=== PATIENT | male | born 1960 | race Native Hawaiian/Other Pacific Islander ===

== ENCOUNTER → 2019-06-29 15:10 | Outpatient (CLI) | payer OTHER, SELFPAY | PROVIDERS: Visit Provider Urology | DX: C61 Malignant neoplasm of prostate (principal); M85.852 Other specified disorders of bone density and structure, left thigh; E11.9 Type 2 diabetes mellitus without complications; Z87.891 Personal history of nicotine dependence | CPT/HCPCS: 77080 ==

== ENCOUNTER → 2020-03-01 08:26 | Outpatient (CLI) | payer OTHER, SELFPAY ==
[2020-03-01 09:21] LABS: Hemoglobin A1C% w Est Avg Glu 11.2 % (4.0-6.0)
[2020-03-01 09:26] LABS: BUN Creatinine Ratio 26.1 (6-22); Blood Urea Nitrogen 18 mg/dL (9-20); Calcium 9.8 mg/dL (8.4-10.2); Carbon Dioxide 26 mmol/L (22-32); Chloride 103 mmol/L (98-107); Cholesterol 159 mg/dL (140-199); Estimated Glomerular Filt Rate > 60.0 mL/min (>60); Glucose 255 mg/dL (80-110); HDL Cholesterol 37 mg/dL (40-60); HEMOLYSIS < 15 (0-50); LDL Cholesterol Calculated 77 mg/dL (<100); Potassium 4.1 mmol/L (3.4-5.1); Sodium 139 mmol/L (137-145); Triglycerides 224 mg/dL (35-150)
[2020-03-01 13:47] LABS: Microalbumin Urine Random 35.9 mg/dL (0-1.6)
[2020-03-01 13:48] LABS: Creatinine Urine Random 128 mg/dL; Microalbumi Creatinin Ratio Ur 280.5 ug/mg CR (<30)
== END ==
PROVIDERS: PCP Internal Medicine; Referring Provider Internal Medicine; Visit Provider Internal Medicine
DX: E11.9 Type 2 diabetes mellitus without complications (principal); E78.5 Hyperlipidemia, unspecified
CPT/HCPCS: 36415; 80048; 80061; 82043; 82570; 83036

== ENCOUNTER → 2022-03-30 10:02 | Outpatient (CLI) | payer OTHER, SELFPAY ==
[2022-03-30 12:00] LABS: COVID19 -Nasal RAPID Negative (Negative)
== END ==
PROVIDERS: PCP Internal Medicine; Visit Provider Surgery
DX: Z01.812 Encounter for preprocedural laboratory examination (principal); Z20.822 Contact with and (suspected) exposure to COVID-19
CPT/HCPCS: 87635; C9803

== ENCOUNTER 2022-03-31 10:23 | Day surgery (SDC) | payer OTHER, SELFPAY ==
[2022-03-31] VITALS (7 sets, daily range): BP systolic 128–155; BP diastolic 80–93; PULSE 60–73; RESP 14–18; TEMP 36.4–36.5; O2SAT 98–100; BMI 30.9
--- NOTE | 2022-03-31 | PATH_ITS ---
[facility] Accession Number: [id number] . 01 Material submitted: . PART A: cecum - CECAL COLON POLYP PART B: colon - ASCENDING COLON POLYP X2 . 01 Diagnosis: A. Cecal Polyp, Biopsy: Colonic mucosa with prominent benign lymphoid aggregate. Negative for serrated lesion, dysplasia, or malignancy. . B. Ascending Colon Polyps, Biopsies: Tubular adenoma x2. MRV 04/02/2022 1135 Local . 01 Electronically signed: . Kristofer Zamora MD, PhD, Pathologist NPI- [id number] . 01 Gross description: . Part A: CECAL COLON POLYP: Received in formalin is 1 fragment(s) of subramanian, soft tissue measuring 0.9 x 0.3 x 0.1 cm submitted entirely in 1 cassette(s) Part B: ASCENDING COLON POLYP X2: Received in formalin are 2 fragment(s) of subramanian, soft tissue measuring 0.5 x 0.3 x 0.2 cm to 0.5 x 0.2 x 0.2 cm submitted entirely in 1 cassette(s) /CPE 04/01/2022 0918 Local . 01 Pathologist provided ICD-10: D12.2 . 01 CPT . 539114, [id number] Specimen Comment: A courtesy copy of this report has been sent to [phone] Performed at: [facility] [address] [place] [address], [place], [place] [id number] MD Charles Garcia MD Phone: [phone]
[2022-03-31] MEDS: LACTATED RINGERS 1,000 ML 84 ML IV (11:07)
--- NOTE | 2022-03-31 11:19 | P.HP_ITS ---
History of Present Illness History of Present Illness Chief complaint: [facility] [place] History Family & Social History Social History: household members none Tobacco & Substance use: Smoking Status Never smoker alcohol intake former Substance Use Type does not use Meds Home Medications and Allergies Home Medications Medication Instructions Recorded Confirmed Type alfuzosin 10 mg tablet,extended 10 tab PO DAILY 03/31/22 03/31/22 History release 24 hr aspirin 81 mg tablet,delayed 81 mg PO DAILY 03/31/22 03/31/22 History release atorvastatin 20 mg tablet 20 tab PO DAILY 03/31/22 03/31/22 History cyclobenzaprine 10 mg tablet 10 tab PO 1-2XD PRN Moderate Pain 03/31/22 03/31/22 History (Scale Score 5-6) dulaglutide 3 mg/0.5 mL 3 ea SUBCUT DIRECTED 03/31/22 03/31/22 History subcutaneous pen injector (Trulicity) insulin glargine 100 unit/mL (3 20 ea SUBCUT BID 03/31/22 03/31/22 History mL) subcutaneous pen (Lantus Solostar U-100 Insulin) losartan 50 mg tablet 50 mg PO DAILY 03/31/22 03/31/22 History Allergies Allergy/AdvReac Type Severity Reaction Status Date / Time No Known Drug Allergies Allergy Verified 03/31/22 11:00 Review of Systems Review of Systems Narrative: Negative Exam Vital Signs (past 8 hours): - 03/31/22 10:51 Temperature 97.7 F Pulse Rate 73 Respiratory Rate 18 Blood Pressure 155/93 H Pulse Oximetry 100 Oxygen Delivery Method Room Air Oxygen Delivery Method Room Air Narrative Exam Narrative: Awake alert and oriented x3, pupils equal round reactive to light, oropharynx clear, heart regular rate and rhythm, lungs clear to auscultation bilaterally, abdomen nontender and nondistended, extremities without edema, no gross neurologic deficits noted Assessment & Plan Assessment & Plan narrative: Colon cancer screening for colonoscopy today Time Spent With Patient Critical Care time: I spent a total of [] minutes of critical care time on this patient's care today; this time is exclusive of procedural time.
--- NOTE | 2022-03-31 11:54 | PM.OP.COLON ---
Operative Date/Time/Diagnoses Date of procedure: 03/31/22 Procedure & Clinicians Study performed: Colonoscopy with snare polypectomy Indications: Colon cancer screening. Last colonoscopy was about 10 years ago. Procedure Notes Procedure in detail: Prior to the procedure, history and physical was performed, and patient medications and allergies were reviewed. Preprocedure nursing history and assessment was reviewed. Patient identification and proposed procedure were verified by the physician and nurse in the procedure room. The physical status of the patient was reassessed after the procedure. After informed consent was obtained including risks, benefits, and alternatives, the scope was passed under direct vision. Throughout the procedure, the patient's blood pressure, pulse, and oxygen saturations were monitored continuously. The colonoscope was introduced through the anus and advanced to the cecum as identified by the appendiceal orifice and ileocecal valve. The patient tolerated the procedure well. Bowel prep was deemed adequate to detect polyps greater than 5 mm. Digital rectal and perianal examinations were unremarkable. Retroflexion in the rectum revealed grade 2 internal hemorrhoids. Three sessile polyps measuring 3-5 mm in diameter were removed from the cecum and ascending (2) colon using a cold snare and were retrieved Complications: other (EBL minimal. No complications) Impression: Internal hemorrhoids Three polyps measuring 3-5 mm in diameter removed from the cecum in ascending colon Post-procedure Plan for aftercare: Follow-up pathology results Repeat colonoscopy at a date to be determined based on pathology results Resume home medications Resume previous diet Patient has a contact number available for emergencies. The signs and symptoms of potential delayed complications were discussed with the patient. Return to normal activities tomorrow. Written discharge instructions were provided to the patient. Discharge home with escort
== END 2022-03-31 12:36 | disposition home or self-care (01) ==
PROVIDERS: PCP Internal Medicine; Referring Provider Internal Medicine; Visit Provider Internal Medicine
PROC: 0DJD8ZZ Inspection of Lower Intestinal Tract, Via Natural or Artificial Opening Endoscopic (ICD-10-PCS; CPT 45378; principal; 2022-03-31 11:30)
DX: Z12.11 Encounter for screening for malignant neoplasm of colon (principal); D12.2 Benign neoplasm of ascending colon; K63.5 Polyp of colon; K64.1 Second degree hemorrhoids
CPT/HCPCS: 45385; 82962; J2704